=== PATIENT | male | born 1980 | race Caucasian/White ===

== ENCOUNTER → 2022-08-15 13:27 | Outpatient (BNVA) | payer OTHER, SELFPAY | PROVIDERS: Visit Provider Podiatrist Foot & Ankle Surgery | DX: M20.41 Other hammer toe(s) (acquired), right foot (principal); M20.42 Other hammer toe(s) (acquired), left foot; L84 Corns and callosities; M21.621 Bunionette of right foot; M21.622 Bunionette of left foot | CPT/HCPCS: 73630 ==